=== PATIENT | female | born 1985 | race Caucasian/White ===

== ENCOUNTER 2017-06-07 20:15 | Emergency (ER) | payer MEDICAID, OTHER, SELFPAY ==
[2017-06-07 20:28] VITALS: BP 139/95
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
== END 2017-06-07 21:13 | disposition home or self-care (01) ==
LOC: JD.ED 20:15
DX: F10.129 Alcohol abuse with intoxication, unspecified (principal); F17.210 Nicotine dependence, cigarettes, uncomplicated
CPT/HCPCS: 99283; 99284

== ENCOUNTER 2017-08-05 16:56 | Emergency (ER) | payer MEDICAID ==
[2017-08-05 17:46] VITALS: BP 125/91
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
== END 2017-08-05 18:22 | disposition home or self-care (01) ==
LOC: EEVIPCON 16:56 → JD.ED 16:56
DX: T74.21XA Adult sexual abuse, confirmed, initial encounter (principal); F10.120 Alcohol abuse with intoxication, uncomplicated; F17.210 Nicotine dependence, cigarettes, uncomplicated; Y90.2 Blood alcohol level of 40-59 mg/100 ml
CPT/HCPCS: 36415; 80053; 85025; 99285; G0480

== ENCOUNTER 2017-10-09 22:13 | Emergency (ER) | payer MEDICAID ==
[2017-10-09 22:21] VITALS: BP 130/91
--- NOTE | 2017-10-09 23:10 | EDM.PDOCBH ---
ED HPI GENERAL MEDICAL PROBLEM - General Chief Complaint: Drug or Alcohol Abuse Stated Complaint: DETOX AND POSSIBLE TREATMENT Time Seen by Provider: 10/09/17 22:40 Source of Information: Reports: Patient, Family History Limitations: Reports: No Limitations - History of Present Illness INITIAL COMMENTS - FREE TEXT/NARRATIVE: This is a 32-year-old female. She comes tonight because she has been drinking alcohol today and she wants her alcohol level checked. She wants some outpatient alcohol treatment and possibly to be put into the hospital for detox. She mentioned the name of Robert Pritchett who apparently told her at one time that she would be happy to follow her as an outpatient for alcohol treatment and detox. And the patient was also wanting some Antabuse to keep her from drinking. The family states she drinks approximately 1-1/3 L of vodka daily. The patient concurs with this assessment. She apparently used to live here and then moved to [place] and now she is moved back to here. She has been through an alcohol treatment program in the past but that was in 2009. She was also in [place] sometime ago for about 2 weeks for alcohol treatment. She denies any suicidal or homicidal ideation. The patient states she's been drinking alcohol since the age of 21. The family tell me that she has some hallucinations after she drinks her vodka for the day. She is having no hallucinations presently. - Related Data Allergies Allergy/AdvReac Type Severity Reaction Status Date / Time No Known Allergies Allergy Verified 08/05/17 17:39 Home Meds: Home Meds . [No Known Home Meds] 10/09/15 [History] Past Medical History - Past Health History Medical/Surgical History: Denies Medical/Surgical History Other Cardiovascular History: Boyfriend states one time a while ago she mentioned something about her heart fluttering but she didn't really talk about it much. Other Respiratory History: Boyfriend states there's no known resp. hx. Other Genitourinary History: Boyfriend states sometimes it seems like she can't go and at other times it seems like she can hardly make it to the bathroom. 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 Neurological History: Reports: Migraines Other Neuro History: Boyfriend states she takes IBU for migraianes, because she told him they cause her to have "mini seizures." Boyfriend states he's never seen her have a mini seizure and she is not on meds. for seizures. Psychiatric History: Reports: Addiction, Other (See Below) Other Psychiatric History: PER ER NURSE REPORT.PT WAS SEEN BEFORE OUTPT BY ROBERT PRITCHETT FOR ALCOHOL TREATMENT Other Hematologic History: No known hx according to boyfriend. Other Immunologic History: No known hx according to boyfriend. Other Oncologic History: No known hx according to boyfriend. - Infectious Disease History Infectious Disease History: Reports: None - Past Surgical History Other HEENT Surgeries/Procedures: Boyfriend states no known HEENT problems. Other GI Surgeries/Procedures: Boyfriend states there's no known GI hx. Other Endocrine Surgeries/Procedures: No known hx according to boyfriend. Social & Family History - Family History Family Medical History: Noncontributory Oncologic: Reports: Lung Other Oncologic Family History: grandmother with lung cancer - Tobacco Use Smoking Status *Q: Current Every Day Smoker Years of Tobacco use: 16 Packs/Tins Daily: 0.5 - Caffeine Use Caffeine Use: Reports: Coffee, Energy Drinks, Soda Caffeine Use Comment: Unknown; pt intubated. - Recreational Drug Use Recreational Drug Use: No Other Recreational Drug Type: marijuana use about 3 years ago - Living Situation & Occupation Living situation: Reports: Single Occupation: Unemployed ED ROS GENERAL - Review of Systems Review Of Systems: See Below Constitutional: Denies: Fever, Chills HEENT: Reports: No Symptoms Respiratory: Reports: No Symptoms Cardiovascular: Reports: No Symptoms Endocrine: Reports: No Symptoms GI/Abdominal: Denies: Abdominal Pain, Nausea, Vomiting : Reports: No Symptoms Musculoskeletal: Reports: No Symptoms Skin: Reports: No Symptoms Neurological: Reports: No Symptoms Psychiatric: Reports: No Symptoms Hematologic/Lymphatic: Reports: No Symptoms ED EXAM, BEHAVIORAL HEALTH - Physical Exam Exam: See Below Exam Limited By: Intoxication General Appearance: Alert, WD/WN, No Apparent Distress Eye Exam: Bilateral Eye: Normal Inspection Ears: Normal External Exam Nose: Normal Inspection Throat/Mouth: Normal Inspection, Normal Lips, Normal Voice, No Airway Compromise Head: Normocephalic Neck: Supple Respiratory/Chest: No Respiratory Distress, Lungs Clear, Normal Breath Sounds Cardiovascular: Regular Rate, Rhythm, No Murmur GI/Abdominal: Soft, Non-Tender Back Exam: Full Range of Motion Extremities: Normal Inspection, Normal Range of Motion Neurological: Alert, Normal Mood/Affect Psychiatric: Alert, Normal Affect, Other (Slight slurred speech). No: Suicidal Plan, Suicidal Thoughts, Auditory Hallucinations, Visual Hallucinations, Paranoid Thoughts Skin Exam: Warm, Dry COURSE, BEHAVIORAL HEALTH COMP - Course Vital Signs: Last Vital Signs Temp 97.3 F 10/09/17 22:20 Pulse 124 H 10/09/17 22:20 Resp 20 10/09/17 22:20 BP 130/91 H 10/09/17 22:20 Pulse Ox 98 10/09/17 22:20 Orders, Labs, Meds: Active Orders 24 hr Category Date Time Status DRUG SCREEN, URINE [URCHEM] Stat Lab 10/09/17 23:21 Ordered Laboratory Tests 10/09/17 10/09/17 10/09/17 Range/Units 23:21 23:35 23:35 WBC 6.36 (3.98-10.04) K/mm3 RBC 4.93 (3.98-5.22) M/mm3 Hgb 15.4 (11.2-15.7) gm/L Hct 44.8 (34.1-44.9) % MCV 90.9 (79.4-94.8) fl MCH 31.2 (25.6-32.2) pg MCHC 34.4 (32.2-35.5) g/dl RDW Std Deviation 42.3 (36.4-46.3) fL Plt Count 184 (182-369) K/mm3 MPV 9.4 (9.4-12.3) fl Neut % (Auto) 55.0 (34.0-71.1) % Lymph % (Auto) 33.6 (19.3-51.7) % [place] % (Auto) 10.1 (4.7-12.5) % Eos % (Auto) 0.5 L (0.7-5.8) Baso % (Auto) 0.5 (0.1-1.2) % Neut # (Auto) 3.50 (1.56-6.13) K/mm3 Lymph # (Auto) 2.14 (1.18-3.74) K/mm3 [place] # (Auto) 0.64 H (0.24-0.36) K/mm3 Eos # (Auto) 0.03 L (0.04-0.36) K/mm3 Baso # (Auto) 0.03 (0.01-0.08) K/mm3 Sodium 141 (136-145) mEq/L Potassium 3.4 L (3.5-5.1) mEq/L Chloride 103 (98-107) mEq/L Carbon Dioxide 30 (21-32) mEq/L Anion Gap 11.4 (5-15) BUN 5 L (7-18) mg/dL Creatinine 0.9 (0.55-1.02) mg/dL Est Cr Clr Drug Dosing 98.96 mL/min Estimated GFR (MDRD) > 60 (>60) mL/min BUN/Creatinine Ratio 5.6 L (14-18) Glucose 95 (74-106) mg/dL Calcium 8.2 L (8.5-10.1) mg/dL Total Bilirubin 0.4 (0.2-1.0) mg/dL AST 44 H (15-37) U/L ALT 50 (14-59) U/L Alkaline Phosphatase 91 (46-116) U/L Total Protein 7.7 (6.4-8.2) g/dl Albumin 3.9 (3.4-5.0) g/dl Globulin 3.8 gm/dL Albumin/Globulin Ratio 1.0 (1-2) Lipase 579 H (73-393) U/L HCG, Qual (NEGATIVE) Urine Opiates Screen Negative (NEGATIVE) Ur Buprenorphine Scrn Negative (NEGATIVE) Ur Oxycodone Screen Negative (NEGATIVE) Urine Methadone Screen Negative (NEGATIVE) Ur Propoxyphene Screen Negative (NEGATIVE) Ur Barbiturates Screen Negative (NEGATIVE) Ur Tricyclics Screen Negative (NEGATIVE) Ur Phencyclidine Scrn Negative (NEGATIVE) Ur Amphetamine Screen Negative (NEGATIVE) U Methamphetamines Scrn Negative (NEGATIVE) U Benzodiazepines Scrn Negative (NEGATIVE) U Cocaine Metab Screen Negative (NEGATIVE) U Marijuana (THC) Screen Negative (NEGATIVE) Ethyl Alcohol 0.32 (0.00) gm% 10/09/17 Range/Units 23:35 WBC (3.98-10.04) K/mm3 RBC (3.98-5.22) M/mm3 Hgb (11.2-15.7) gm/L Hct (34.1-44.9) % MCV (79.4-94.8) fl MCH (25.6-32.2) pg MCHC (32.2-35.5) g/dl RDW Std Deviation (36.4-46.3) fL Plt Count (182-369) K/mm3 MPV (9.4-12.3) fl Neut % (Auto) (34.0-71.1) % Lymph % (Auto) (19.3-51.7) % [place] % (Auto) (4.7-12.5) % Eos % (Auto) (0.7-5.8) Baso % (Auto) (0.1-1.2) % Neut # (Auto) (1.56-6.13) K/mm3 Lymph # (Auto) (1.18-3.74) K/mm3 [place] # (Auto) (0.24-0.36) K/mm3 Eos # (Auto) (0.04-0.36) K/mm3 Baso # (Auto) (0.01-0.08) K/mm3 Sodium (136-145) mEq/L Potassium (3.5-5.1) mEq/L Chloride (98-107) mEq/L Carbon Dioxide (21-32) mEq/L Anion Gap (5-15) BUN (7-18) mg/dL Creatinine (0.55-1.02) mg/dL Est Cr Clr Drug Dosing mL/min Estimated GFR (MDRD) (>60) mL/min BUN/Creatinine Ratio (14-18) Glucose (74-106) mg/dL Calcium (8.5-10.1) mg/dL Total Bilirubin (0.2-1.0) mg/dL AST (15-37) U/L ALT (14-59) U/L Alkaline Phosphatase (46-116) U/L Total Protein (6.4-8.2) g/dl Albumin (3.4-5.0) g/dl Globulin gm/dL Albumin/Globulin Ratio (1-2) Lipase (73-393) U/L HCG, Qual Negative (NEGATIVE) Urine Opiates Screen (NEGATIVE) Ur Buprenorphine Scrn (NEGATIVE) Ur Oxycodone Screen (NEGATIVE) Urine Methadone Screen (NEGATIVE) Ur Propoxyphene Screen (NEGATIVE) Ur Barbiturates Screen (NEGATIVE) Ur Tricyclics Screen (NEGATIVE) Ur Phencyclidine Scrn (NEGATIVE) Ur Amphetamine Screen (NEGATIVE) U Methamphetamines Scrn (NEGATIVE) U Benzodiazepines Scrn (NEGATIVE) U Cocaine Metab Screen (NEGATIVE) U Marijuana (THC) Screen (NEGATIVE) Ethyl Alcohol (0.00) gm% Re-Assessment/Re-Exam: I spoke to the family and the patient regarding the lab results and the elevated pancreatic enzyme and an alcohol level of 0.32. I gave her Robert Pritchett number for them to call on Thursday for treatment as an outpatient. Both her significant other and her mother are here and they're going to see to it that she calls and gets taken care of. Departure - Departure Time of Disposition: 00:41 Disposition: Home, Self-Care 01 Condition: Fair Clinical Impression: Alcohol intoxication, Alcohol abuse - Discharge Information Referrals: PCP,None [Primary Care Provider] - Robert Pritchett LAC [Licensed Counselor] - Forms: ED Department Discharge Additional Instructions: Please cut back on drinking in preparation of your outpatient treatment for alcohol abuse with Robert Pritchett, called her number Thursday around 8:30 AM and talk to her about outpatient treatment for your alcohol use, return to the ER if needed - My Orders Last 24 Hours: My Active Orders 10/09/17 23:21 DRUG SCREEN, URINE [URCHEM] Stat - Assessment/Plan Last 24 Hours: My Active Orders 10/09/17 23:21 DRUG SCREEN, URINE [URCHEM] Stat
== END 2017-10-10 00:48 | disposition home or self-care (01) ==
LOC: JD.ED 22:13
DX: F10.129 Alcohol abuse with intoxication, unspecified (principal); Y90.8 Blood alcohol level of 240 mg/100 ml or more; F17.210 Nicotine dependence, cigarettes, uncomplicated
CPT/HCPCS: 36415; 80053; 80306; 83690; 84703; 85025; 99285; G0480; 99283

== ENCOUNTER 2018-07-30 19:12 | Emergency (ER) | payer MEDICAID, OTHER, SELFPAY ==
[2018-07-30 19:22] VITALS: BP 128/94
[2018-07-30] MEDS ORDERED: Famotidine 20 MG/2 ML SDV IVPUSH ONE (19:53)
[2018-07-30] MEDS ORDERED: Ondansetron 4 MG/2 ML SDV IVPUSH ONE (19:53)
[2018-07-30] MEDS ORDERED: Sodium Chloride 0.9% 1,000 ML IV SCH (20:00)
--- NOTE | 2018-07-30 22:28 | EDM.PDOC ---
ED HPI GENERAL MEDICAL PROBLEM - General Chief Complaint: Drug or Alcohol Abuse Stated Complaint: [facility] Time Seen by Provider: 07/30/18 19:30 Source of Information: Reports: Patient, Family History Limitations: Reports: Intoxication - History of Present Illness INITIAL COMMENTS - FREE TEXT/NARRATIVE: His is a 32-year-old female. She was brought to the ER by ambulance this evening because her significant other states that he had a spell where she was staring off into the distance would not respond to him or talk to him and it lasted for at least 5 maybe 10 minutes so he called the ambulance. When the ambulance arrived she was in this staring state until she got into the ambulance and then she "woke up" and has been talking ever since. She says 3 or 4 years ago she was drinking heavily and she passed out and she when she was brought back to life. She says she is an alcoholic and she drinks all the time. She might have mixed some cough or cold medication with her drinking this evening. Presently she is acting her normal self even though she is drunk. She does complain of some upper abdominal pain but other than that she seems to be without distress and she knows where she is and she knows her significant other and she knows that I am a Doctor. Treatments HEALTH INFORMATION MANAGER: Reports: IV/IO, Other (see below) Other Treatments HEALTH INFORMATION MANAGER: fluids - Related Data Allergies Allergy/AdvReac Type Severity Reaction Status Date / Time No Known Allergies Allergy Verified 07/30/18 19:22 Home Meds: Home Meds . [No Known Home Meds] 10/09/15 [History] Past Medical History - Past Health History Medical/Surgical History: Denies Medical/Surgical History Other Cardiovascular History: Boyfriend states one time a while ago she mentioned something about her heart fluttering but she didn't really talk about it much. Other Respiratory History: Boyfriend states there's no known resp. hx. Other Genitourinary History: Boyfriend states sometimes it seems like she can't go and at other times it seems like she can hardly make it to the bathroom. 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 Neurological History: Reports: Migraines Other Neuro History: Boyfriend states she takes IBU for migraianes, because she told him they cause her to have "mini seizures." Boyfriend states he's never seen her have a mini seizure and she is not on meds. for seizures. Psychiatric History: Reports: Addiction, Other (See Below) Other Psychiatric History: PER ER NURSE REPORT.PT WAS SEEN BEFORE OUTPT BY MARIS PRITCHETT FOR ALCOHOL TREATMENT Other Hematologic History: No known hx according to boyfriend. Other Immunologic History: No known hx according to boyfriend. Other Oncologic History: No known hx according to boyfriend. - Infectious Disease History Infectious Disease History: Reports: None - Past Surgical History Other HEENT Surgeries/Procedures: Boyfriend states no known HEENT problems. Other GI Surgeries/Procedures: Boyfriend states there's no known GI hx. Other Endocrine Surgeries/Procedures: No known hx according to boyfriend. Other Musculoskeletal Surgeries/Procedures:: No known hx according to boyfriend. Social & Family History - Family History Family Medical History: Noncontributory Oncologic: Reports: Lung Other Oncologic Family History: grandmother with lung cancer - Tobacco Use Smoking Status *Q: Current Every Day Smoker Years of Tobacco use: 10 Packs/Tins Daily: 0.5 - Caffeine Use Caffeine Use: Reports: Coffee, Energy Drinks, Soda Caffeine Use Comment: Unknown; pt intubated. - Recreational Drug Use Recreational Drug Use: No - Living Situation & Occupation Living situation: Reports: Single Occupation: Unemployed ED ROS GENERAL - Review of Systems Review Of Systems: See Below Constitutional: Denies: Fever, Chills HEENT: Reports: No Symptoms Respiratory: Reports: No Symptoms Cardiovascular: Reports: No Symptoms Endocrine: Reports: No Symptoms GI/Abdominal: Reports: Abdominal Pain. Denies: Constipation, Diarrhea, Nausea, Vomiting : Reports: No Symptoms Musculoskeletal: Reports: No Symptoms Skin: Reports: No Symptoms Neurological: Reports: Other (Absence spell) Psychiatric: Reports: Other (Intoxicated) Hematologic/Lymphatic: Reports: No Symptoms - Physical Exam Exam: See Below Exam Limited By: Intoxication General Appearance: Alert, WD/WN, No Apparent Distress Eye Exam: Bilateral Eye: Normal Inspection Ears: Normal External Exam, Normal Canal, Normal TMs Nose: Normal Inspection Throat/Mouth: Normal Inspection, Normal Lips, No Airway Compromise, Other ( Slight slurred speech ) Head Exam: Normocephalic Neck: Supple, Non-Tender Respiratory/Chest: No Respiratory Distress, Lungs Clear, Normal Breath Sounds Cardiovascular: Regular Rate, Rhythm, No Murmur, Tachycardia GI/Abdominal: Soft, Other (She has some upper abdominal soreness on palpation but no distention no guarding no rigidity and no rebound) Neuro Exam (Abbreviated): Alert, Oriented Back Exam: Normal Inspection, Full Range of Motion Extremities: Normal Inspection, Normal Range of Motion Psychiatric: Normal Affect, Normal Mood Skin Exam: Warm, Dry Course - Vital Signs Last Recorded V/S: Last Vital Signs Temp 97.9 F 07/30/18 19:18 Pulse 119 H 07/30/18 19:18 Resp 16 07/30/18 19:18 BP 128/94 H 07/30/18 19:18 Pulse Ox 97 07/30/18 19:18 - Orders/Labs/Meds Orders: Active Orders 24 hr Category Date Time Status Sodium Chloride 0.9% [Normal Saline] 1,000 ml Med 07/30/18 20:00 Active IV ASDIRECTED Medication Orders Sodium Chloride (Normal Saline) 1,000 mls @ 1,000 mls/hr IV ASDIRECTED SHAKEEL Last Admin: 07/30/18 20:16 Dose: 1,000 mls/hr Labs: Laboratory Tests 07/30/18 07/30/18 07/30/18 Range/Units 19:55 19:55 20:10 WBC 3.85 L (3.98-10.04) K/mm3 RBC 4.46 (3.98-5.22) M/mm3 Hgb 13.9 D (11.2-15.7) gm/L Hct 40.7 (34.1-44.9) % MCV 91.3 (79.4-94.8) fl MCH 31.2 (25.6-32.2) pg MCHC 34.2 (32.2-35.5) g/dl RDW Std Deviation 42.6 (36.4-46.3) fL Plt Count 279 (182-369) K/mm3 MPV 8.3 L (9.4-12.3) fl Neut % (Auto) 37.6 (34.0-71.1) % Lymph % (Auto) 42.9 (19.3-51.7) % [place] % (Auto) 16.9 H (4.7-12.5) % Eos % (Auto) 0.5 L (0.7-5.8) Baso % (Auto) 1.8 H (0.1-1.2) % Neut # (Auto) 1.45 L (1.56-6.13) K/mm3 Lymph # (Auto) 1.65 (1.18-3.74) K/mm3 [place] # (Auto) 0.65 H (0.24-0.36) K/mm3 Eos # (Auto) 0.02 L (0.04-0.36) K/mm3 Baso # (Auto) 0.07 (0.01-0.08) K/mm3 Manual Slide Review Normal smear Sodium (136-145) mEq/L Potassium (3.5-5.1) mEq/L Chloride (98-107) mEq/L Carbon Dioxide (21-32) mEq/L Anion Gap (5-15) BUN (7-18) mg/dL Creatinine (0.55-1.02) mg/dL Est Cr Clr Drug Dosing mL/min Estimated GFR (MDRD) (>60) mL/min BUN/Creatinine Ratio (14-18) Glucose (74-106) mg/dL Calcium (8.5-10.1) mg/dL Total Bilirubin (0.2-1.0) mg/dL AST (15-37) U/L ALT (14-59) U/L Alkaline Phosphatase (46-116) U/L Total Protein (6.4-8.2) g/dl Albumin (3.4-5.0) g/dl Globulin gm/dL Albumin/Globulin Ratio (1-2) Lipase (73-393) U/L HCG, Qual (NEGATIVE) Urine Color Light yellow (Yellow) Urine Appearance Clear (Clear) Urine pH 7.0 (5.0-8.0) Ur Specific [place] 1.010 (1.005-1.030) Urine Protein Negative (Negative) Urine Glucose (UA) Negative (Negative) Urine Ketones Negative (Negative) Urine Occult Blood Negative (Negative) Urine Nitrite Negative (Negative) Urine Bilirubin Negative (Negative) Urine Urobilinogen 0.2 (0.2-1.0) Ur Leukocyte Esterase Negative (Negative) Urine RBC 0-5 (0-5) /hpf Urine WBC 0-5 (0-5) /hpf Ur Squamous Epith Cells 0-5 (0-5) /hpf Urine Bacteria Occasional (FEW) /hpf Urine Mucus Few (FEW) /hpf Urine Opiates Screen Negative (OJZSLE=189) Ur Buprenorphine Scrn Negative (CUTOFF=10) Ur Oxycodone Screen Negative (PYH9MF=237) Urine Methadone Screen Negative (SMMWFL=610) Ur Propoxyphene Screen Negative (FQIAGZ=693) Ur Barbiturates Screen Negative (DUDAHP=898) Ur Tricyclics Screen Negative (LPAJFT=948) Ur Phencyclidine Scrn Negative (CUTOFF=25) Ur Amphetamine Screen Negative (HWYKHC=340) U Methamphetamines Scrn Negative (KXBWPU=834) U Benzodiazepines Scrn Negative (NKXNKI=844) U Cocaine Metab Screen Negative (AFCIKI=072) U Marijuana (THC) Screen Negative (CUTOFF=50) Ethyl Alcohol (0.00) gm% 07/30/18 07/30/18 07/30/18 Range/Units 20:10 20:10 22:30 WBC (3.98-10.04) K/mm3 RBC (3.98-5.22) M/mm3 Hgb (11.2-15.7) gm/L Hct (34.1-44.9) % MCV (79.4-94.8) fl MCH (25.6-32.2) pg MCHC (32.2-35.5) g/dl RDW Std Deviation (36.4-46.3) fL Plt Count (182-369) K/mm3 MPV (9.4-12.3) fl Neut % (Auto) (34.0-71.1) % Lymph % (Auto) (19.3-51.7) % [place] % (Auto) (4.7-12.5) % Eos % (Auto) (0.7-5.8) Baso % (Auto) (0.1-1.2) % Neut # (Auto) (1.56-6.13) K/mm3 Lymph # (Auto) (1.18-3.74) K/mm3 [place] # (Auto) (0.24-0.36) K/mm3 Eos # (Auto) (0.04-0.36) K/mm3 Baso # (Auto) (0.01-0.08) K/mm3 Manual Slide Review Sodium 149 H (136-145) mEq/L Potassium 3.2 L (3.5-5.1) mEq/L Chloride 111 H (98-107) mEq/L Carbon Dioxide 28 (21-32) mEq/L Anion Gap 13.2 (5-15) BUN 5 L (7-18) mg/dL Creatinine 0.8 (0.55-1.02) mg/dL Est Cr Clr Drug Dosing 112.05 mL/min Estimated GFR (MDRD) > 60 (>60) mL/min BUN/Creatinine Ratio 6.3 L (14-18) Glucose 92 (74-106) mg/dL Calcium 8.1 L (8.5-10.1) mg/dL Total Bilirubin 0.3 (0.2-1.0) mg/dL AST 43 H (15-37) U/L ALT 109 H (14-59) U/L Alkaline Phosphatase 82 (46-116) U/L Total Protein 6.6 (6.4-8.2) g/dl Albumin 3.2 L (3.4-5.0) g/dl Globulin 3.4 gm/dL Albumin/Globulin Ratio 0.9 L (1-2) Lipase 371 (73-393) U/L HCG, Qual Negative (NEGATIVE) Urine Color (Yellow) Urine Appearance (Clear) Urine pH (5.0-8.0) Ur Specific [place] (1.005-1.030) Urine Protein (Negative) Urine Glucose (UA) (Negative) Urine Ketones (Negative) Urine Occult Blood (Negative) Urine Nitrite (Negative) Urine Bilirubin (Negative) Urine Urobilinogen (0.2-1.0) Ur Leukocyte Esterase (Negative) Urine RBC (0-5) /hpf Urine WBC (0-5) /hpf Ur Squamous Epith Cells (0-5) /hpf Urine Bacteria (FEW) /hpf Urine Mucus (FEW) /hpf Urine Opiates Screen (OOLYCQ=057) Ur Buprenorphine Scrn (CUTOFF=10) Ur Oxycodone Screen (IHA5HY=804) Urine Methadone Screen (HILTBO=869) Ur Propoxyphene Screen (PEHRJP=195) Ur Barbiturates Screen (MHYHSN=794) Ur Tricyclics Screen (BFGBXV=277) Ur Phencyclidine Scrn (CUTOFF=25) Ur Amphetamine Screen (PHKUSD=020) U Methamphetamines Scrn (FXJJRV=419) U Benzodiazepines Scrn (RIZCPP=824) U Cocaine Metab Screen (CVVJKD=158) U Marijuana (THC) Screen (CUTOFF=50) Ethyl Alcohol 0.45 (0.00) gm% Meds: Medications Generic Name Dose Route Start Last Admin Trade Name Freq PRN Reason Stop Dose Admin Sodium Chloride 1,000 mls @ 1,000 mls/hr 07/30/18 20:00 07/30/18 20:16 Normal Saline IV 1,000 mls/hr ASDIRECTED SHAKEEL Administration Discontinued Medications Generic Name Dose Route Start Last Admin Trade Name Freq PRN Reason Stop Dose Admin Famotidine 20 mg 07/30/18 19:53 07/30/18 20:17 Pepcid IVPUSH 07/30/18 19:54 20 mg ONETIME ONE Administration Ondansetron HCl 4 mg 07/30/18 19:53 07/30/18 20:19 Zofran IVPUSH 07/30/18 19:54 4 mg ONETIME ONE Administration - Re-Assessments/Exams Free Text/Narrative Re-Assessment/Exam: 07/30/18 23:33 I spoke to the patient she is much more awake and one teen to go home. Her blood work did show some mild abnormalities with her potassium being slightly low at 3.2 her alcohol level was 0.45 when she first arrived. Her drug screen was negative and the rest of her blood work was essentially normal or slightly abnormal. Her significant other is here with her presently and he is willing to take her home. I told her that she cannot drink alcohol like this or she is going to . I encouraged her not to drink anymore alcohol for at least the next 24 hours. Departure - Departure Time of Disposition: 23:34 Disposition: Home, Self-Care 01 Condition: Fair Clinical Impression: Alcohol abuse, Alcohol intoxication - Discharge Information *PRESCRIPTION DRUG MONITORING PROGRAM REVIEWED*: Not Applicable *COPY OF PRESCRIPTION DRUG MONITORING REPORT IN PATIENT MONI: Not Applicable Instructions: Alcohol Use Disorder, Alcohol Intoxication, [id number] Referrals: PCP,None [Primary Care Provider] - Forms: ED Department Discharge Additional Instructions: Her significant other is responsible for taking new home and making sure you're safe over the next 24 hours, do not drink any more alcohol for the next 24 hours , if you continue to drink like this you will , return to the ER if needed. - My Orders Last 24 Hours: My Active Orders 07/30/18 20:00 Sodium Chloride 0.9% [Normal Saline] 1,000 ml IV ASDIRECTED - Assessment/Plan Last 24 Hours: My Active Orders 07/30/18 20:00 Sodium Chloride 0.9% [Normal Saline] 1,000 ml IV ASDIRECTED
== END 2018-07-30 23:56 | disposition home or self-care (01) ==
LOC: JD.ED 19:12
DX: F10.129 Alcohol abuse with intoxication, unspecified (principal); Y90.8 Blood alcohol level of 240 mg/100 ml or more; F17.210 Nicotine dependence, cigarettes, uncomplicated
CPT/HCPCS: 36415; 80053; 80306; 81001; 83690; 84703; 85025; 96361; 96374; 96375; 99284; G0480; J2405; J3490; J7040